=== PATIENT | male | born 1995 | race Hispanic/Latino ===

== ENCOUNTER 2022-12-25 09:40 | Emergency (ER) | payer BC, MEDICAID, OTHER ==
[~2022-12-25] VITALS: Ht 188 cm; Wt 112.0 kg
[2022-12-25 09:42] VITALS: BP 134/67; PULSE 112; RESP 22
[2022-12-25] MEDS ORDERED: ACETAMINOPHEN 500 MG TABLET ONE (09:51)
[2022-12-25 10:14] LABS: RAPID GROUP A STREP positive (NEGATIVE)
[2022-12-25 10:16] LABS: COVID19 (SARS ANTIGEN RAPID) PRESUMPTIVE NEGATIVE (NEGATIVE); INFLUENZA TYPE A Negative For Type A (NEGATIVE); INFLUENZA TYPE B Negative For Type B (NEGATIVE)
[2022-12-25 10:18] LABS: BASOPHILS # (AUTO) 0.02 K/uL (0.00-0.20); BASOPHILS % (AUTO) 0.2 % (0.0-5.0); HEMATOCRIT 41.9 % (42-54); IMMATURE GRANULOCYTE ABSOLUTE 0.04 K/uL (0-1); LYMPHOCYTES % (AUTO) 10.1 % (21.0-51.0); MEAN CORPUSCULAR HEMOGLOBIN 28.3 pg (27.0-33.0); MEAN CORPUSCULAR HGB CONC 33.4 g/dL (32.0-36.0); MEAN CORPUSCULAR VOLUME 84.6 fL (79-99); MONOCYTES # (AUTO) 0.8 K/uL (0.1-1.0); MONOCYTES % (AUTO) 7.4 % (3.0-13.0); NEUTROPHILS # (AUTO) 8.4 K/uL (1.8-7.7); NEUTROPHILS % (AUTO) 81.9 % (40.0-77.0); PLATELET COUNT (AUTO) 209 K/uL (130-400); RED BLOOD CELL COUNT(AUTO) 4.95 MIL/uL (4.50-6.20); RED CELL DISTRIBUTION WIDTH 11.9 % (11.0-15.5); WHITE BLOOD COUNT (AUTO) 10.2 K/uL (4.8-10.8)
[2022-12-25 10:28] LABS: CREATININE 1.2 mg/dL (0.5-1.5)
[2022-12-25 10:33] LABS: ALBUMIN 4.2 g/dL (3.5-5.0); BILIRUBIN,TOTAL 0.6 mg/dL (0.2-1.0); TOTAL PROTEIN, SERUM 7.7 g/dL (6.0-8.3)
[2022-12-25 11:44] VITALS: TEMP 100.3
[2022-12-25] MEDS ORDERED: AMOX875T2 PO (11:54)
[2022-12-25] MEDS ORDERED: IBUP-2070 PO (11:54)
== END 2022-12-25 12:10 | disposition home or self-care (01) ==
LOC: EDH 09:40
DX: J02.0 Streptococcal pharyngitis (principal); R13.10 Dysphagia, unspecified; Z20.822 Contact with and (suspected) exposure to COVID-19; Z79.899 Other long term (current) drug therapy
CPT/HCPCS: 36415; 71045; 80053; 83605; 85025; 87426; 87804; 87880